=== PATIENT | female | born 1995 | race Caucasian/White ===

== ENCOUNTER 2018-01-07 18:27 | Emergency (ER) | payer BC ==
[2018-01-07 19:05] VITALS: BP 99/56
--- NOTE | 2018-01-07 20:10 | UC ---
Complaint Female HPI - HPI Summary HPI Summary: 22 y/o female presents to the urgent care c/o frequency and burning on urination since this morning. Mild suprapubic pelvic pain is 3/10 w/ urination. Pt has taking Ibuprofen to alleviate symptoms. She had Hx of UTI in the past. LMP: long time she is on Bry. Pt denies vaginal d/c, fever, flank pain, abdominal pain, SOB,chest pain, N/V/D, Hx of STD's, hematuria - History Of Current Complaint Chief Complaint: UCGU Stated Complaint: URINARY Time Seen by Provider: 01/07/18 19:45 Hx Obtained From: Patient Hx Last Menstrual Period: BRY IMPLANT ?: No Onset/Duration: Gradual Onset, Lasting Days - 1 day, Still Present Timing: Intermittent, Lasting Seconds Severity Initially: Mild Severity Currently: Mild Pain Intensity: 3 Pain Scale Used: 0-10 Numeric Character: Burning Aggravating Factor(s): Urination Alleviating Factor(s): Nothing Associated Signs And Symptoms: Positive: Negative. Negative: Fever, Back Pain, Vaginal Bleeding/Discharge, Vaginal Discharge, Genital Swelling, Genital Blisters - Risk Factors Ectopic Risk Factor: Negative Ovarian Torsion Risk Factor: Negative - Allergies/Home Medications Allergies/Adverse Reactions: Allergies Allergy/AdvReac Type Severity Reaction Status Date / Time amoxicillin Allergy Swelling Verified 01/07/18 18:54 clindamycin Allergy Rash Verified 01/07/18 18:54 Penicillins Allergy Swelling Verified 01/07/18 18:54 Sulfa (Sulfonamide Allergy Rash Verified 01/07/18 18:54 Antibiotics) Home Medications: Home Medications Ibuprofen TAB* [Advil TAB*] 400 mg PO Q6H PRN 01/07/18 [History Confirmed ] Lurasidone(*) [Latuda] 20 mg PO DAILY 01/07/18 [History Confirmed 01/07/18] PMH/Surg Hx/FS Hx/Imm Hx Previously Healthy: Yes - Pt denies PMHX - Surgical History Surgical History: Yes Surgery Procedure, Year, and Place: fatty tumor, right eye x 2 - Family History Known Family History: Positive: Unknown - Pt denies FMHX - Social History Occupation: Employed Full-time Lives: With Family Alcohol Use: Weekly Substance Use Type: Marijuana Smoking Status (MU): Current Some Day Smoker Type: Cigarettes Amount Used/How Often: ONCE A MONTH Length of Time of Smoking/Using Tobacco: 2 YRS Have You Smoked in the Last Year: Yes Review of Systems Constitutional: Negative Skin: Negative Eyes: Negative ENT: Negative Respiratory: Negative Cardiovascular: Negative Gastrointestinal: Negative Genitourinary: Dysuria, Frequency, Urgency Motor: Negative Neurovascular: Negative Musculoskeletal: Negative Neurological: Negative Psychological: Negative Is Patient Immunocompromised?: No All Other Systems Reviewed And Are Negative: Yes Physical Exam - Summary Physical Exam Summary: VITAL SIGNS: Reviewed. GENERAL: Patient is a well developed and nourished female who is sitting comfortable in the examining table. Patient is not in any acute respiratory distress. HEAD AND FACE: No signs of trauma. No ecchymosis, hematomas or skull depressions. No sinus tenderness. EYES: PERRLA, EOMI x 2, No injected conjunctiva, clear watery eyes, no nystagmus. No photophobia. EARS: Hearing grossly intact. Ear canals and tympanic membranes are within normal limits. MOUTH: pharynx with no erythema, no exudates,no palatal petechiae. no B/L tonsillar enlargement Uvula in midline. NECK: Supple, trachea is midline, no lymphadenopathy, no JVD, no carotid bruit, no c-spine tenderness, neck with full ROM. CHEST: Symmetric, no tenderness at palpation LUNGS: Clear to auscultation bilaterally. No wheezing or crackles. CVS: Regular rate and rhythm, S1 and S2 present, no murmurs or gallops appreciated. ABDOMEN: Soft, non-tender. No signs of distention. No rebound no guarding, and no masses palpated. Bowel sounds are normal. BACK:no scoliosis or lesions, non tender to palpation, No B/L CVA tenderness EXTREMITIES: FROM in all major joints, no edema, no cyanosis or clubbing. NEURO: Alert and oriented x 3. No acute neurological deficits. Speech is normal and follows commands. SKIN: Dry and warm Triage Information Reviewed: Yes Vital Signs: Initial Vital Signs Temp 98.1 F 01/07/18 18:59 Pulse 83 01/07/18 18:59 Resp 16 01/07/18 18:59 BP 99/56 01/07/18 18:59 Pulse Ox 99 01/07/18 18:59 Complaint Female Dx - Course Course Of Treatment: 22 y/o female presents to the urgent care c/o frequency and burning on urination since this morning. Mild suprapubic pelvic pain is 3/ 10 w/ urination. Pt has taking Ibuprofen to alleviate symptoms. She had Hx of UTI in the past. LMP: long time she is on Bry. Pt denies vaginal d/c, fever, flank pain, abdominal pain, SOB,chest pain, N/V/D, Hx of STD's, hematuria. Hx obtained. PE: WNL.UA and test ordered. UA results: Blood 1+, Leukoesterase 2+. test: negative. Pt Rx Macrobid 100mg PO x 7 days. Pyridium 100mg PO TID x 2 days. Advised to increase fluid intake. Urine sent for culture if any abnormality Pt will be notified for further treatment. Pt advised If symptoms do not improve to return to the urgent care or f/u with PCP. Pt understood and agreed w/ D/C instructions. Pt Left the clinic ambulating. - Differential Dx/Diagnosis Differential Diagnosis/HQI/PQRI: Cervicitis, Pelvic Inflammatory Disease, Renal Colic, Sexually Transmitted Disease, Ureteral Stone, Urinary Tract Infection Provider Diagnoses: 1- Urinary tract infection. 2-Dysuria Discharge - Sign-Out/Discharge Documenting (check all that apply): Discharge/Admit/Transfer - D/C home - Discharge Plan Condition: Stable Disposition: HOME Prescriptions: Nitrofurantoin Monohyd/M-Cryst [Macrobid 100 mg Capsule] 100 mg PO BID #14 cap Phenazopyridine TAB* [Pyridium 100 mg TAB*] 100 mg PO TID #6 tab Patient Education Materials: Urinary Tract Infection in Women (ED), Dysuria (ED ) Referrals: Juventino Hoyt MD [Primary Care Provider] - 3 Days Additional Instructions: 1- Please take Macrobid 100mg PO x 7 days. Pyridium 100 mg PO TID x 2 days to alleviate urinary symptoms. Increase increase fluid intake. drink cranberry juice. 2-Urine sent for culture if any abnormality, you will be notified for further treatment. 3-If symptoms do not improve please return to the urgent care or f/u with your PCP. - Billing Disposition and Condition Condition: STABLE
== END 2018-01-07 20:34 | disposition home or self-care (01) ==
LOC: UCCORT 18:27
DX: N39.0 Urinary tract infection, site not specified (principal); R30.0 Dysuria; Z88.3 Allergy status to other anti-infective agents; Z88.0 Allergy status to penicillin; Z88.2 Allergy status to sulfonamides
CPT/HCPCS: 81003; 84702; 87077; 87086; 87186; 99212; G0463

== ENCOUNTER 2018-02-26 17:34 | Emergency (ER) | payer BC ==
[2018-02-26 18:36] VITALS: BP 103/62
--- NOTE | 2018-02-26 20:01 | ED ---
GI/ HPI - HPI Summary HPI Summary: 22 yo WF h/o UTI c/o recurrent UTI sx of dysuria, urinary frequency and urgency since yesterday - History of Current Complaint Chief Complaint: UCGU Time Seen by Provider: 02/26/18 19:19 Stated Complaint: URINARY Hx Obtained From: Patient Hx Last Menstrual Period: IUD Onset/Duration: Started Hours Ago Timing: Constant Severity: Moderate Current Severity: Moderate Pain Intensity: 4 - Allergy/Home Medications Allergies/Adverse Reactions: Allergies Allergy/AdvReac Type Severity Reaction Status Date / Time amoxicillin Allergy Swelling Verified 01/07/18 18:54 clindamycin Allergy Rash Verified 01/07/18 18:54 Penicillins Allergy Swelling Verified 01/07/18 18:54 Sulfa (Sulfonamide Allergy Rash Verified 01/07/18 18:54 Antibiotics) Home Medications: Home Medications Phenazopyridine HCl [Urinary Pain Relief] 95 mg PO ONCE PRN 02/26/18 [History Confirmed 02/26/18] PMH/Surg Hx/FS Hx/Imm Hx Previously Healthy: Yes - UTIs - Surgical History Surgery Procedure, Year, and Place: fatty tumor, right eye x 2 Infectious Disease History: No Infectious Disease History: Denies: Hx Clostridium Difficile, Hx Hepatitis, Hx Human Immunodeficiency Virus (HIV), Hx of Known/Suspected MRSA, Hx Shingles, Hx Tuberculosis, Hx Known/ Suspected VRE, Hx Known/Suspected VRSA, History Other Infectious Disease, Traveled Outside the in Last 30 Days - Family History Known Family History: Positive: Unknown - Pt denies FMHX - Social History Alcohol Use: None Alcohol Amount: pt states she quit ETOH approx 1 mo ago Substance Use Type: Reports: Marijuana Substance Use Comment - Amount & Last Used: not used for past 4 mos. Smoking Status (MU): Current Some Day Smoker Type: Cigarettes Amount Used/How Often: ONCE A MONTH Length of Time of Smoking/Using Tobacco: 2 YRS Have You Smoked in the Last Year: Yes Review of Systems Constitutional: Negative Eyes: Negative ENT: Negative Cardiovascular: Negative Respiratory: Negative Gastrointestinal: Negative Positive: dysuria, frequency, urgency Musculoskeletal: Negative Skin: Negative Neurological: Negative Psychological: Normal All Other Systems Reviewed And Are Negative: Yes Physical Exam - Summary Physical Exam Summary: Vital Signs Reviewed: Yes Appearance: Positive: Well-Appearing Skin: Neg skin lesions Respiratory/Lung Sounds: Positive: Clear to Auscultation Cardiovascular: Positive: Normal, RRR, S1, S2 Abdomen Description: Positive: Nontender, no CVA tenderness Musculoskeletal: Positive: Normal Neurological: Positive: Normal Psychiatric: Positive: Normal Triage Information Reviewed: Yes Vital Signs On Initial Exam: Initial Vitals Temp Pulse Resp BP Pulse Ox 37.1 C 88 18 103/62 99 02/26/18 18:30 02/26/18 18:30 02/26/18 18:30 02/26/18 18:30 02/26/18 18:30 Vital Signs Reviewed: Yes Diagnostics - Vital Signs Vital Signs Temp Pulse Resp BP Pulse Ox 02/26/18 18:30 37.1 C 88 18 103/62 99 - Laboratory Lab Results: Lab Results 02/26/18 Range/Units 18:47 POC Ur Test Negative (Negative) Lab Statement: Any lab studies that have been ordered have been reviewed, and results considered in the medical decision making process. GIGU Course/Dx - Diagnoses Provider Diagnoses: UTI (urinary tract infection) Discharge - Sign-Out/Discharge Documenting (check all that apply): Discharge/Admit/Transfer - Discharge Plan Condition: Stable Disposition: HOME Prescriptions: Nitrofurantoin Monohyd/M-Cryst [Macrobid 100 mg Capsule] 100 mg PO BID 5 Days # 10 cap Patient Education Materials: Urinary Tract Infection in Women (ED) Referrals: Juventino Hoyt MD [Primary Care Provider] - - Billing Disposition and Condition Condition: STABLE Disposition: Home
== END 2018-02-26 20:10 | disposition home or self-care (01) ==
LOC: UCCORT 17:34
DX: N39.0 Urinary tract infection, site not specified (principal); Z87.440 Personal history of urinary (tract) infections; Z88.1 Allergy status to other antibiotic agents; Z88.0 Allergy status to penicillin; Z88.2 Allergy status to sulfonamides; F17.210 Nicotine dependence, cigarettes, uncomplicated
CPT/HCPCS: 84702; 99212; G0463

== ENCOUNTER 2018-04-30 13:49 | Emergency (ER) | payer BC ==
--- OUTSIDE RECORDS SUMMARY | 2018-04-30 14:04 | XMS REPORT ---
:1995 External Reference #:[id number] Author [facility] Address [address] [place] [id number] Phone [phone] Care Team Providers Name Role Phone Juventino Hoyt MD Primary Care Physician Unavailable Payers Type Date Identification Numbers Payment Provider Subscriber Commercial Effective: Policy Number: [id number] Whitley Mcconnell 2014 PayID: [id number] [address] [address] [place] [address] Medicaid Effective: 2018 Policy Number: Medicaid Pe (JC) Argelia Mcconnell [id number] Expires: 2018 PayID: [id number] [address] [place] [phone] Medicaid Expires: 2016 Policy Number: Medicaid FPBP (JC) Argelia Mcconnell [id number] PayID: [id number] [place] [phone] Medicaid Expires: 2017 PayID: [id number] Medicaid Pe ([facility]) Argelia Mcconnell [address] [place] [phone] Problems Date Description Provider Status Onset: 09/04/2015 Farhat Calvo NP Active Family History Date Family Member(s) Problem(s) Comments General Breast Cancer paternal great grandmother and paternal grandmother Father Alive Mother Alive Social History Type Date Description Comments Education College Education Currently working on nursing Associates Degree Work Status Part-Time Employment [employer] 01/20/2018 Never Smoked Cigars Pipe 01/20/2018 Never Smoked A Pipe Smokeless Tobacco 01/20/2018 Never Used Smokeless Tobacco ETOH Use Currently consumes alcohol Recreational Drug Use No I.D.U. Smoking Patient is a former smoker Recreational Drug Use Teaching Provided Regarding Naloxone/Narcan Training Available At [facility] Recreational Drug Use Sporadically uses Cocaine states used a few months ago, not planning on using again, thinks she shared her bill Tattoo/Piercing Negative For Tattoo Age [address]st [place] 15 Years Old STD's No STD History Sexual Hx text Allergies, Adverse Reactions, Alerts Date Description Reaction Status Severity Comments 08/28/2015 Latex active 08/28/2015 Penicillin active 08/28/2015 Clindamycin active 08/28/2015 Amoxicillin active 08/28/2015 Sulfa Antibiotics active 12/10/2017 Cipro active 12/10/2017 Levaquin active Medications Medication Date Status Form Strength Qnty SIG Indications Ordering Provider Nuvaring 04/19 Active Ring 0.12-0.01 3unit insert 1 ring Z30.015 In 5mg/24HR s vaginally on MD Get the then remove on the of the month; each month Nuvaring 04/19 Active Ring 0.12-0.01 3unit insert 1 ring Z30.015 In 5mg/24HR s vaginally on MD Get the then remove on the of the ; each month Jessica 10/16 Administered IUD 13.5mg Z30.014 Melinda SANDEEP Calvo Latuda Active Unknown /0000 Terconazole 09/11 Hx Cream 0.4% 45gm one B37.3 Melinda applicatorful [place], - vaginally x 7 [employer] 12/10 days at at 2018 bedtime Nuvaring 09/04 Hx Ring 0.12-0.01 3unit Insert Z30.40 Melinda 5mg/24HR s vaginally [place], - monthly Remove [employer] 10/16 in 3 weeks directed Depakote Hx Unknown /0000 - 09/11 Vital Signs Date Vital Result Comment 04/26/2018 BP Systolic 114 mmHg BP Diastolic 73 mmHg Height 64.5 inches 5'4.50" Weight 179.00 lb BMI (Body Mass Index) 30.2 kg/m2 04/19/2018 BP Systolic 111 mmHg BP Diastolic 75 mmHg Height 64.5 inches 5'4.50" Weight 181.00 lb BMI (Body Mass Index) 30.6 kg/m2 01/20/2018 BP Systolic 106 mmHg BP Diastolic 64 mmHg Height 64.5 inches 5'4.50" Weight 183.00 lb BMI (Body Mass Index) 30.9 kg/m2 12/10/2017 BP Systolic 118 mmHg BP Diastolic 78 mmHg Height 64.5 inches 5'4.50" Weight 182.00 lb BMI (Body Mass Index) 30.8 kg/m2 09/11/2017 BP Systolic 108 mmHg BP Diastolic 65 mmHg Height 64.5 inches 5'4.50" Weight 180.00 lb BMI (Body Mass Index) 30.4 kg/m2 11/10/2016 BP Systolic 110 mmHg BP Diastolic 72 mmHg Height 64.5 inches 5'4.50" Weight 152.00 lb BMI (Body Mass Index) 25.7 kg/m2 10/16/2016 BP Systolic 105 mmHg BP Diastolic 80 mmHg BP Systolic Recheck 113 mmHg post IUD insertion BP Diastolic Recheck 73 mmHg post IUD insertion Height 64.5 inches 5'4.50" 09/04/2015 BP Systolic 90 mmHg BP Diastolic 60 mmHg Height 64.5 inches 5'4.50" Weight 152.00 lb BMI (Body Mass Index) 25.7 kg/m2 Last Menstrual Period [id number] Results Test Date Test Result H/L Range Note Chlamydia/N Gonorroeae 04/19/2018 CT,Rna,Tma,Uroge NOT DETECTED Not Detected 1 Rna Tma Urogenit nital GC Rna,Tma,Urogen NOT DETECTED Not Detected 2 Laboratory test finding 04/19/2018 HIV Rapid... non reactive Chlamydia/N Gonorroeae 01/20/2018 CT,Rna,Tma,Urogenita NOT DETECTED Not Detected 3 Rna Tma Urogenit l GC Rna,Tma,Urogen NOT DETECTED Not Detected 4 Laboratory test 01/20/2018 RPR W/Titer and Conf NON-REACTIVE Non- Reactive 5 finding RFX Laboratory test 01/20/2018 Test negative finding Urine..... Laboratory test 12/10/2017 HIV Rapid... non reactive finding Hep C Rapid Test non reactive Wet Prep.... 12/10/2017 WBC Smear few Clue Cells Vag Fluid Wet Prep 0 Reva Wet Prep 0 Lactobacillus Wet Prep many Whiff Wet Prep neg. Bacteria Wet Prep n/a PH Wet Prep 4.5 Misc Other Test no trich seen Chlam Trach/Neisseria 12/10/2017 C.Trachomatis NOT DETECTED Not Detected 6 Gonorroeae Rna Tma Rna,Tma N.Gonorrhoeae Rna,Tma NOT DETECTED Not Detected 7 Laboratory test finding 09/11/2017 HIV Rapid... non reactive Hep C Rapid Test non reactive HGB Blood.... 12.8 Thinprep Pap Boil Off Machine Operator Cloth W/RFX HPV HR 09/11/2017 Results SEE NOTE 8 Wet Prep.... 09/11/2017 WBC Smear few Clue Cells Vag Fluid Wet Prep 0 Reva Wet Prep hyphaen and buds Lactobacillus Wet Prep many Whiff Wet Prep neg. Bacteria Wet Prep n/a PH Wet Prep 4.5 Misc Other Test no trich seen Chlam Trach/Neisseria 09/11/2017 C.Trachomatis NOT DETECTED Not Detected 9 Gonorroeae Rna Tma Rna,Tma N.Gonorrhoeae Rna,Tma NOT DETECTED Not Detected 10 Chlam Trach/Neisseria 11/10/2016 C.Trachomatis NOT DETECTED Not Detected 11 Gonorroeae Rna Tma Rna,Tma N.Gonorrhoeae Rna,Tma NOT DETECTED Not Detected 12 Culture,Urine,Voided 11/10/2016 Source URINE Final Report SEE NOTE 13 Urinalysis DIP Only.... 11/10/2016 Urine Leukocyte Esterase QN N Urine Nitrite QN N Urine Blood ++ Urine PH 8.0 Urine Protein Random ++ Urine Ketone Random N Urine Glucose QN Random N Laboratory test finding 11/10/2016 Test Urine..... neg Wet Prep.... 11/10/2016 WBC Smear neg Clue Cells Vag Fluid Wet Prep neg Reva Wet Prep neg Lactobacillus Wet Prep neg Whiff Wet Prep neg Bacteria Wet Prep na PH Wet Prep 4.5 Misc Other Test No trich Chlam Trach/Neisseria 10/16/2016 C.Trachomatis NOT DETECTED Not Detected 14 Gonorroeae Rna Tma Rna,Tma N.Gonorrhoeae Rna,Tma NOT DETECTED Not Detected 15 Laboratory test finding 10/16/2016 HIV Rapid... non reactive Laboratory test finding 10/16/2016 Test Urine..... neg Urinalysis DIP Only.... 10/16/2016 Urine Leukocyte Esterase QN N Urine Nitrite QN N Urine Blood N Urine PH 8.0 Urine Protein Random tr Urine Ketone Random N Urine Glucose QN Random N Wet Prep.... 09/04/2015 WBC Smear 0-1 Clue Cells Vag Fluid Wet Prep none Reva Wet Prep none Lactobacillus Wet Prep few Whiff Wet Prep negative Bacteria Wet Prep none PH Wet Prep 4.5 Misc Other Test no trich seen Thinprep Pap Boil Off Machine Operator Cloth 09/04/2015 Results SEE NOTE 16 W/RFX HPV Mrna E6/E7 Laboratory test 09/04/2015 C.Trachomatis NOT DETECTED Not Detected 17 finding Rna,Tma W/RFX N.Gonorrhoeae Rna,Tma [place] Annual Lab Set 09/04/2015 HGB Blood.... 12.5 Urinalysis DIP 09/04/2015 Urine Leukocyte tr Only.... Esterase QN Urine Nitrite QN N Urine Blood N Urine PH 9 Urine Protein Random ++ Urine Ketone Random N Urine Glucose QN Random N Laboratory test finding 09/04/2015 HIV Rapid... non reactive 1 This test was performed using the APTIMA COMBO2(R) Assay (GEN-PROBE(R). The analytical performance characteristics of this assay, when used to test SurePath(R) specimens have been determined by [facility]. 2 This test was performed using the APTIMA COMBO2(R) Assay (GEN-PROBE(R). The analytical performance characteristics of this assay, when used to test SurePath(R) specimens have been determined by [facility]. 3 This test was performed using the APTIMA COMBO2(R) Assay (GEN-PROBE(R). The analytical performance characteristics of this assay, when used to test SurePath(R) specimens have been determined by [facility]. 4 This test was performed using the APTIMA COMBO2(R) Assay (GEN-PROBE(R). The analytical performance characteristics of this assay, when used to test SurePath(R) specimens have been determined by [facility]. 5 The RPR is a htl-yxeiwpkokb-wufacwkv test; therefore a treponemal-specific confirmatory test should be performed unless prior syphilis infection has been documented for the patient. 6 This test was performed using the APTIMA COMBO2(R) Assay (GEN-PROBE(R). The analytical performance characteristics of this assay, when used to test SurePath(R) specimens have been determined by [facility]. 7 This test was performed using the APTIMA COMBO2(R) Assay (GEN-PROBE(R). The analytical performance characteristics of this assay, when used to test SurePath(R) specimens have been determined by [facility]. 8 GYNECOLOGICAL CYTOLOGY REPORT Thinprep TIS PAP w/rfx to HPV E6/E7 REPORT STATUS: FINAL CLINICAL INFORMATION: Information not provided SLIDES / SOURCE: 1 / Information not provided STATEMENT OF ADEQUACY: Satisfactory for evaluation. Endocervical/transformation zone component present. INTERPRETATION/RESULT: Negative for intraepithelial lesion or malignancy. COMMENT: This Pap test has been evaluated with computer assisted technology. HOTEL DIRECTOR: MELISSA KIDD([facility]) For informational Purposes: All cytology specimens are processed and screened at [facility]. [address] [place] [id number] This test was performed using the APTIMA COMBO2(R) Assay (GEN-PROBE(R). The analytical performance characteristics of this assay, when used to test SurePath(R) specimens have been determined by [facility]. 10 This test was performed using the APTIMA COMBO2(R) Assay (GEN-PROBE(R). The analytical performance characteristics of this assay, when used to test SurePath(R) specimens have been determined by [facility]. 11 This test was performed using the APTIMA COMBO2(R) Assay (GEN-PROBE(R). The analytical performance characteristics of this assay, when used to test SurePath(R) specimens have been determined by [facility]. 12 This test was performed using the APTIMA COMBO2(R) Assay (GEN-PROBE(R). The analytical performance characteristics of this assay, when used to test SurePath(R) specimens have been determined by [facility]. 13 NO GROWTH 14 This test was performed using the APTIMA COMBO2(R) Assay (GEN-PROBE(R). The analytical performance characteristics of this assay, when used to test SurePath(R) specimens have been determined by [facility]. 15 A NON-SPECIFIC TEST WAS ORDERED AND THE ABOVE ASSAY WAS PERFORMED. IF THIS IS NOT WHAT YOU INTENDED TO ORDER, PLEASE CONTACT YOUR LOCAL NAILHEAD OPERATOR IMMEDIATELY AT SO THAT WE CAN ADJUST OUR BILLING APPROPRIATELY. YOU MAY ALSO INQUIRE ABOUT ALTERNATIVE OR ADDITIONAL TESTING. This test was performed using the APTIMA COMBO2(R) Assay (GEN-PROBE(R). The analytical performance characteristics of this assay, when used to test SurePath(R) specimens have been determined by [facility]. 16 GYNECOLOGICAL CYTOLOGY REPORT Thinprep TIS PAP w/rfx to HPV E6/E7 REPORT STATUS: FINAL CLINICAL INFORMATION: Routine exam LMP: [id number] SLIDES / SOURCE: 1 / Information not provided STATEMENT OF ADEQUACY: Satisfactory for evaluation. Endocervical/transformation zone component present. INTERPRETATION/RESULT: Negative for intraepithelial lesion or malignancy. COMMENT: This Pap test has been evaluated with computer assisted technology. HOTEL DIRECTOR: ERINN HERNANDEZ([facility]) For informational Purposes: All cytology specimens are processed and screened at [facility]. [address] [place] [id number] This test was performed using the APTIMA COMBO2(R) Assay (GEN-PROBE(R). The analytical performance characteristics of this assay, when used to test SurePath(R) specimens have been determined by [facility]. Procedures Date CPT Code Description Status 10/16/2016 [id number] Insert Intrauterine Device Completed Encounters Type Date Location Provider CPT E/M Office Visit 12/10/2017 2:30p [place] [id number] Office Visit 10/16/2016 3:15p [place] [id number]
[2018-04-30 14:43] VITALS: BP 104/62
--- NOTE | 2018-04-30 14:55 | UC ---
Complaint Female HPI - HPI Summary HPI Summary: pt is c/o external vaginal itching and burning after sex with a new partner 4 days ago. she self tx with single monistat followed by a single diflucan from [facility] 2 days ago. she was tx based on hx and didn't have a pelvic but offeres didn't have time for that either. - History Of Current Complaint Chief Complaint: UCGU Stated Complaint: PERSONAL Time Seen by Provider: 04/30/18 14:48 Hx Obtained From: Patient Hx Last Menstrual Period: 2.5 weeks Onset/Duration: Gradual Onset Timing: Constant Pain Intensity: 2 Aggravating Factor(s): Nothing Alleviating Factor(s): Nothing Associated Signs And Symptoms: Negative: Fever, Back Pain, Vaginal Bleeding/ Discharge - Allergies/Home Medications Allergies/Adverse Reactions: Allergies Allergy/AdvReac Type Severity Reaction Status Date / Time amoxicillin Allergy Swelling Verified 01/07/18 18:54 clindamycin Allergy Rash Verified 01/07/18 18:54 Penicillins Allergy Swelling Verified 01/07/18 18:54 Sulfa (Sulfonamide Allergy Rash Verified 01/07/18 18:54 Antibiotics) fluoroquinolones Allergy anxiety Uncoded 04/30/18 14:44 depression Home Medications: Home Medications Nuvaring 1 unit VAGINAL DAILY 04/30/18 [History Confirmed 04/30/18] PMH/Surg Hx/FS Hx/Imm Hx Psychological History: Bipolar Disorder - Surgical History Surgical History: Yes Surgery Procedure, Year, and Place: fatty tumor, right eye x 2 - Family History Known Family History: Positive: Unknown - Pt denies FMHX - Social History Occupation: Employed Full-time, Student Alcohol Use: Occasionally Alcohol Amount: pt states she quit ETOH approx 1 mo ago Substance Use Type: Marijuana Substance Use Comment - Amount & Last Used: end March 2018 Smoking Status (MU): Never Smoked Tobacco Type: Cigarettes Amount Used/How Often: ONCE A MONTH Length of Time of Smoking/Using Tobacco: 2 YRS Have You Smoked in the Last Year: Yes When Did the Patient Quit Smoking/Using Tobacco: December, - Immunization History Vaccination Up to Date: Yes Review of Systems Constitutional: Negative Skin: Negative Eyes: Negative ENT: Negative Respiratory: Negative Cardiovascular: Negative Gastrointestinal: Negative Genitourinary: Negative Motor: Negative Neurovascular: Negative Musculoskeletal: Negative Neurological: Negative Psychological: Negative Is Patient Immunocompromised?: No All Other Systems Reviewed And Are Negative: Yes Physical Exam Triage Information Reviewed: Yes Appearance: Well-Appearing Vital Signs: Initial Vital Signs Temp 98.2 F 04/30/18 14:29 Pulse 98 04/30/18 14:29 Resp 16 04/30/18 14:29 BP 104/62 04/30/18 14:29 Pulse Ox 99 04/30/18 14:29 Vital Signs Reviewed: Yes Eyes: Positive: Conjunctiva Clear ENT: Positive: Normal ENT inspection Neck: Positive: Supple, Nontender, No Lymphadenopathy Respiratory: Positive: Lungs clear, Normal breath sounds Cardiovascular: Positive: RRR, No Murmur Abdomen Description: Positive: Nontender, No Organomegaly, Soft. Negative: Distended, Guarding Bowel Sounds: Positive: Present Pelvic Exam: Positive: Other - External exam: no lesions, ulcerations, vesicles or odor. vaginal opeing is red. Vagina has a thick white material. Os closed. cultures obtained. No CMT or adnexal mass on Bimanual exam. Musculoskeletal: Positive: ROM Intact Neurological: Positive: Alert Psychological: Positive: Age Appropriate Behavior Skin Exam: Normal Complaint Female Dx - Course Course Of Treatment: nothing to suggest herpes or std on exam. affirm plus gc and chlamydia testes pending. will tx presumptively for yeast vaginitis. - Differential Dx/Diagnosis Provider Diagnoses: vaginitis Discharge - Sign-Out/Discharge Documenting (check all that apply): Patient Departure All imaging exams completed and their final reports reviewed: No Studies - Discharge Plan Condition: Stable Disposition: HOME Prescriptions: Fluconazole [Diflucan] 150 mg PO ONCE #1 tablet Patient Education Materials: Vaginitis (ED) Referrals: Juventino Hoyt MD [Primary Care Provider] - 7 Days - Billing Disposition and Condition Condition: STABLE Disposition: Home
--- NOTE | 2018-05-02 08:44 | UC ---
- Progress Note Progress Note: Vaginal culture test positive for gardnerella and negative for gary. Trichomonas pending . She was already given fluconazole. Plan to start her on flagyl , e precribed. Please inform patient Discharge - Sign-Out/Discharge Documenting (check all that apply): Post-Discharge Follow Up All imaging exams completed and their final reports reviewed: No Studies - Discharge Plan Condition: Stable Disposition: HOME Prescriptions: Fluconazole [Diflucan] 150 mg PO ONCE #1 tablet Patient Education Materials: Vaginitis (ED) Referrals: Juventino Hoyt MD [Primary Care Provider] - 7 Days - Billing Disposition and Condition Condition: STABLE Disposition: Home
== END 2018-04-30 15:55 | disposition home or self-care (01) ==
LOC: UCCORT 13:49
DX: N76.0 Acute vaginitis (principal); Z87.891 Personal history of nicotine dependence; Z88.3 Allergy status to other anti-infective agents; Z88.0 Allergy status to penicillin; Z88.2 Allergy status to sulfonamides
CPT/HCPCS: 87480; 87491; 87510; 87591; 87661; 99212; G0463

== ENCOUNTER 2018-08-30 15:20 | Emergency (ER) | payer BC ==
[2018-08-30 16:36] VITALS: BP 107/68
--- NOTE | 2018-08-30 16:58 | UC ---
Throat Pain/Nasal Chandra HPI - HPI Summary HPI Summary: Patient has a sore throat, left tonsil is swollen and sore, no fever - History of Current Complaint Chief Complaint: UCGeneralIllness Stated Complaint: SORE THROAT Time Seen by Provider: 08/30/18 16:50 Hx Obtained From: Patient Hx Last Menstrual Period: 08/23/18 ?: No Onset/Duration: Sudden Onset, Lasting Days Severity: Moderate Pain Intensity: 3 Associated Signs & Symptoms: Positive: Dysphagia - Allergies/Home Medications Allergies/Adverse Reactions: Allergies Allergy/AdvReac Type Severity Reaction Status Date / Time amoxicillin Allergy Swelling Verified 08/30/18 16:30 clindamycin Allergy Rash Verified 08/30/18 16:30 Penicillins Allergy Swelling Verified 08/30/18 16:30 Sulfa (Sulfonamide Allergy Rash Verified 08/30/18 16:30 Antibiotics) fluoroquinolones Allergy anxiety Uncoded 08/30/18 16:30 depression PMH/Surg Hx/FS Hx/Imm Hx Previously Healthy: Yes - Surgical History Surgical History: Yes Surgery Procedure, Year, and Place: fatty tumor, right eye x 2 - Family History Known Family History: Positive: Unknown Negative: Cardiac Disease, Hypertension - Social History Alcohol Use: Occasionally Alcohol Amount: pt states she quit ETOH approx 1 mo ago Substance Use Type: None Substance Use Comment - Amount & Last Used: end March 2018 Smoking Status (MU): Never Smoked Tobacco Type: Cigarettes Amount Used/How Often: ONCE A MONTH Length of Time of Smoking/Using Tobacco: 2 YRS Have You Smoked in the Last Year: Yes When Did the Patient Quit Smoking/Using Tobacco: December, - Immunization History Vaccination Up to Date: Yes Review of Systems All Other Systems Reviewed And Are Negative: Yes Constitutional: Positive: Negative Skin: Positive: Negative Eyes: Positive: Negative ENT: Positive: Sore Throat Respiratory: Positive: Negative Cardiovascular: Positive: Negative Gastrointestinal: Positive: Negative Genitourinary: Positive: Negative Motor: Positive: Negative Neurovascular: Positive: Negative Musculoskeletal: Positive: Negative Neurological: Positive: Negative Psychological: Positive: Negative Is Patient Immunocompromised?: No Physical Exam Triage Information Reviewed: Yes Appearance: Well-Nourished, Ill-Appearing, Pain Distress Vital Signs: Initial Vital Signs Temp 98.3 F 08/30/18 16:31 Pulse 102 08/30/18 16:31 Resp 16 08/30/18 16:31 BP 107/68 12/24/18 16:31 Pulse Ox 100 08/30/18 16:31 Vital Signs Reviewed: Yes Eye Exam: Normal ENT Exam: Normal ENT: Positive: Pharyngeal erythema, Tonsillar swelling, Tonsillar exudate - in left tonsil Dental Exam: Normal Neck exam: Normal Respiratory Exam: Normal Cardiovascular Exam: Normal Cardiovascular: Positive: RRR, No Murmur, Pulses Normal Abdominal Exam: Normal Bowel Sounds: Positive: Present Musculoskeletal Exam: Normal Neurological Exam: Normal Psychological Exam: Normal Skin Exam: Normal Throat Pain/Nasal Course/Dx - Course Course Of Treatment: hx obtained, exam performed ,meds reviewed, treated for tonsillitis - Differential Dx/Diagnosis Differential Diagnosis/HQI/PQRI: Otitis Media, Pharyngitis, Sinusitis, URI Provider Diagnosis: Tonsillitis Discharge - Sign-Out/Discharge Documenting (check all that apply): Patient Departure All imaging exams completed and their final reports reviewed: No Studies - Discharge Plan Condition: Stable Disposition: HOME Prescriptions: Cephalexin CAP* [Keflex CAP*] 500 mg PO BID #14 cap predniSONE [Prednisone 20 MG TAB] 40 mg PO DAILY #10 tablet Patient Education Materials: Tonsillitis (ED) Referrals: Juventino Hoyt MD [Primary Care Provider] - Additional Instructions: 1. take the medication as prescribed 2. Increase fluid intake and get rested 3. salt water garlges frequently throughout the day 4. FOllow up as needed. - Billing Disposition and Condition Condition: STABLE Disposition: Home
== END 2018-08-30 17:07 | disposition home or self-care (01) ==
LOC: UCCORT 15:20
DX: J03.90 Acute tonsillitis, unspecified (principal); Z88.0 Allergy status to penicillin; Z88.1 Allergy status to other antibiotic agents; Z88.2 Allergy status to sulfonamides
CPT/HCPCS: 87651; 99212; G0463

== ENCOUNTER 2018-10-16 07:18 | Emergency (ER) | payer BC ==
--- OUTSIDE RECORDS SUMMARY | 2018-10-16 07:29 | XMS REPORT | Continuity of Care Document ---
:1995 External Reference #:[id number] Author Name Melinda Calvo NP Address [address] [place] [id number] Care Team Providers Name Role Phone Juventino Hoyt MD Primary Care Physician Unavailable Payers Type Date Identification Numbers Payment Provider Subscriber Effective: 2018 Policy Number: [id number] Whitley Mcconnell PayID: [id number] [address] [address] [place] [id number] Effective: 2018 Policy Number: [id number] Medicaid Pe ([facility]) Argelia Mcconnell Expires: 2018 PayID: [id number] [place] [id number] Expires: 2016 Policy Number: [id number] Medicaid FPBP ([facility]) Argelia Mcconnell PayID: [id number] [address] [place] [id number] Expires: 2017 PayID: [id number] Medicaid Pe ([facility]) Argelia Mcconnell [address] [place] [phone] Effective: 2014 Policy Number: [id number] Whitley Mcconnell Expires: 2018 PayID: [id number] [address] [address] [place] [address] Advance Directives Description No Information Available Problems Date Description Provider Status Onset: 09/04/2015 Acne Melinda Calvo NP Active Family History Date Family Member(s) Problem(s) Comments General Breast Cancer paternal great grandmother and paternal grandmother Father Alive Mother Alive Social History Type Date Description Comments Sex Female Education College Education Currently working on nursing Associates Degree Work Status Part-Time Employment [employer] Tobacco Use Reviewed: 01/20/18 Never Smoked Cigars Tobacco Use Reviewed: 01/20/18 Never Smoked A Pipe Tobacco Use Reviewed: 01/20/18 Never Used Smokeless Tobacco ETOH Use Currently consumes alcohol Recreational Drug Use No I.D.U. Tobacco Use Start: Unknown End: Patient is a former only would take puff Unknown smoker from a cigarette Recreational Drug Use Teaching Provided Regarding Naloxone/Narcan Training Available At [facility] Recreational Drug Use Sporadically uses states used a few Cocaine months ago, not planning on using again, thinks she shared her bill, November 2017 Smoking Status Reviewed: 09/09/18 Patient is a former only would take puff smoker from a cigarette Tattoo/Piercing Negative For Tattoo Age [address]st [place] 15 Years Old STD's No STD History UNKNOWN 01/20/2018 Never E-Cigarette User Allergies, Adverse Reactions, Alerts Date Description Reaction Status Severity Comments 08/28/2015 Latex Active 08/28/2015 Penicillin Active 08/28/2015 Clindamycin Active 08/28/2015 Amoxicillin Active 08/28/2015 Sulfa Antibiotics Active 12/10/2017 Cipro Active 12/10/2017 Levaquin Active Medications Medication Date Status Form Strength Qnty SIG Indications Ordering Provider Plan B 09/30 Administered Tablets 1.5mg 1tabs take one tab Z30.012 Melinda Christianson - today SANDEEP Calvo Nuvaring 09/09 Active Ring 0.12-0.01 1unit insert Z30.44 5mg/24HR s vaginally edmund Calvo NP remove in 3 weeks as directed. Then place new ring one week later. 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 bedtime Nuvaring 09/04 Hx Ring 0.12-0.01 3unit Insert Z30.40 5mg/24HR s vaginally [place] - monthly TELEPHONE WORKER 10/16 Remove in weeks As directed Depakote Hx Unknown /0000 - 09/11 Immunizations Description No Information Available Vital Signs Date Vital Result Comment 09/30/2018 12:18pm BP Systolic 111 mmHg BP Diastolic 76 mmHg 09/24/2018 1:53pm BP Systolic 117 mmHg BP Diastolic 71 mmHg Weight 180.00 lb 09/09/2018 12:58pm BP Systolic 101 mmHg BP Diastolic 66 mmHg Height 64.5 inches 5'4.50" Weight 186.00 lb BMI (Body Mass Index) 31.4 kg/m2 04/26/2018 1:07pm BP Systolic 114 mmHg BP Diastolic 73 mmHg Height 64.5 inches 5'4.50" Weight 179.00 lb BMI (Body Mass Index) 30.2 kg/m2 04/19/2018 11:37am BP Systolic 111 mmHg BP Diastolic 75 mmHg Height 64.5 inches 5'4.50" Weight 181.00 lb BMI (Body Mass Index) 30.6 kg/m2 01/20/2018 11:11am BP Systolic 106 mmHg BP Diastolic 64 mmHg Height 64.5 inches 5'4.50" Weight 183.00 lb BMI (Body Mass Index) 30.9 kg/m2 12/10/2017 2:42pm BP Systolic 118 mmHg BP Diastolic 78 mmHg Height 64.5 inches 5'4.50" Weight 182.00 lb BMI (Body Mass Index) 30.8 kg/m2 09/11/2017 1:40pm BP Systolic 108 mmHg BP Diastolic 65 mmHg Height 64.5 inches 5'4.50" Weight 180.00 lb BMI (Body Mass Index) 30.4 kg/m2 11/10/2016 1:07pm BP Systolic 110 mmHg BP Diastolic 72 mmHg Height 64.5 inches 5'4.50" Weight 152.00 lb BMI (Body Mass Index) 25.7 kg/m2 10/16/2016 3:31pm BP Systolic 105 mmHg BP Diastolic 80 mmHg BP Systolic Recheck 113 mmHg post IUD insertion BP Diastolic Recheck 73 mmHg post IUD insertion Height 64.5 inches 5'4.50" 09/04/2015 1:56pm BP Systolic 90 mmHg BP Diastolic 60 mmHg Height 64.5 inches 5'4.50" Weight 152.00 lb BMI (Body Mass Index) 25.7 kg/m2 Last Menstrual Period [id number] Results Test Date Facility Test Result H/L Range Note Wet Prep.... 09/30/2018 [facility] WBC Smear 0 Clue Cells Vag Fluid Wet Prep 0 Reva Wet Prep hyphae Lactobacillus Wet Prep few Whiff Wet Prep neg. Bacteria Wet Prep n/a PH Wet Prep 4.5 Misc Other Test no trich seen Chlamydia/N 09/24/[address] [facility] [address],Rna,Tma,Urogenital NOT DETECTED Not Detected 1 [place] Rna Tma Urogenit GC Rna,Tma,Urogen NOT DETECTED Not Detected 2 Chlamydia/N 09/24/[address] [facility] [address],Rna,Tma,Urogenital NOT DETECTED Not Detected 3 Gonorroe[place] Rna Tma Urogenit GC Rna,Tma,Urogen NOT DETECTED Not Detected 4 Herpes Simplex Virus 09/24/2018 [facility] NOT GIVEN-NOT GI <SEE NOTE> 5 Culture W/RFX Type HSV Culture NOT ISOLATED Not Isolated 6 Chlamydia/N 09/09/[address] [facility] [address],Rna,Tma,Urogenital NOT DETECTED Not Detected 7 [place]or[place] Rna Tma Urogenit GC Rna,Tma,Urogen NOT DETECTED Not Detected 8 Laboratory test finding 09/09/2018 [facility] Test Urine..... negative Laboratory test finding 09/09/2018 [facility] HIV Rapid... non reactive Hep C Rapid Test non reactive Chlamydia/N 04/19/[address] [facility] [address],Rna,Tma,Urogenital NOT DETECTED Not Detected 9 [place] Rna Tma Urogenit GC Rna,Tma,Urogen NOT DETECTED Not Detected 10 Laboratory test 04/19/2018 [facility] HIV Rapid... non reactive finding Laboratory test 01/20/2018 [facility] RPR W/Titer and NON-REACTIVE Non- Reactive 11 finding Conf RFX Laboratory test 01/20/2018 [facility] Test negative finding Urine..... Chlamydia/N 01/20/[address] [facility] [address],Rna,Tma,Urogen NOT DETECTED Not Detected 12 [place] Rna Tma ital Urogenit GC Rna,Tma,Urogen NOT DETECTED Not Detected 13 Wet Prep.... 12/10/2017 [facility] WBC Smear few Clue Cells Vag Fluid Wet Prep 0 Reva Wet Prep 0 Lactobacillus Wet Prep many Whiff Wet Prep neg. Bacteria Wet Prep n/a PH Wet Prep 4.5 Misc Other Test no trich seen Chlam 12/10/2017 [facility] C.Trachomatis NOT DETECTED Not Detected 14 Trach/Neisseria Rna,Tma Gonorroeae Rna Tma N.Gonorrhoeae Rna,Tma NOT DETECTED Not Detected 15 Laboratory test finding 12/10/2017 [facility] HIV Rapid... non reactive Hep C Rapid Test non reactive Laboratory test finding 09/11/2017 [facility] HIV Rapid... non reactive Hep C Rapid Test non reactive HGB Blood.... 12.8 Thinprep Pap Lmft 09/11/2017 [facility] Results SEE NOTE 16 W/RFX HPV HR Chlam 09/11/2017 [facility] C.Trachomatis NOT DETECTED Not Detected 17 Trach/Neisseria Rna,Tma Gonorroeae Rna Tma N.Gonorrhoeae Rna,Tma NOT DETECTED Not Detected 18 Wet Prep.... 09/11/2017 [facility] WBC Smear few Clue Cells Vag Fluid Wet Prep 0 Reva Wet Prep hyphaen and buds Lactobacillus Wet Prep many Whiff Wet Prep neg. Bacteria Wet Prep n/a PH Wet Prep 4.5 Misc Other Test no trich seen Culture,Urine,Voided 11/10/2016 [facility] URINE Final Report SEE NOTE 19 Urinalysis DIP Only.... 11/10/2016 [facility] Urine Leukocyte Esterase QN N Urine Nitrite QN N Urine Blood ++ Urine PH 8.0 Urine Protein Random ++ Urine Ketone Random N Urine Glucose QN Random N Laboratory test finding 11/10/2016 [facility] Test Urine..... neg Wet Prep.... 11/10/2016 [facility] WBC Smear neg Clue Cells Vag Fluid Wet Prep neg Reva Wet Prep neg Lactobacillus Wet Prep neg Whiff Wet Prep neg Bacteria Wet Prep na PH Wet Prep 4.5 Misc Other Test No trich Chlam 11/10/2016 [facility] C.Trachomatis NOT DETECTED Not Detected 20 Trach/Neisseria Rna,Tma Gonorroeae Rna Tma N.Gonorrhoeae Rna,Tma NOT DETECTED Not Detected 21 Chlam 10/16/2016 [facility] C.Trachomatis NOT DETECTED Not Detected 22 Trach/Neisseria Rna,Tma Gonorroeae Rna Tma N.Gonorrhoeae Rna,Tma NOT DETECTED Not Detected 23 Laboratory test finding 10/16/2016 [facility] HIV Rapid... non reactive Laboratory test finding 10/16/2016 [facility] Test Urine..... neg Urinalysis DIP Only.... 10/16/2016 [facility] Urine Leukocyte Esterase N QN Urine Nitrite QN N Urine Blood N Urine PH 8.0 Urine Protein Random tr Urine Ketone Random N Urine Glucose QN Random N Wet Prep.... 09/04/2015 [facility] WBC Smear 0-1 Clue Cells Vag Fluid Wet Prep none Reva Wet Prep none Lactobacillus Wet Prep few Whiff Wet Prep negative Bacteria Wet Prep none PH Wet Prep 4.5 Misc Other Test no trich seen Thinprep Pap Lmft 09/04/2015 [facility] Results SEE NOTE 24 W/RFX HPV Mrna E6/E7 Laboratory test 09/04/2015 [facility] C.Trachomatis NOT DETECTED Not Detected 25 finding Rna,Tma W/RFX N.Gonorrhoeae Rna,Tma [place] [facility] 09/04/2015 [facility] HGB Blood.... 12.5 Set Urinalysis DIP 09/04/2015 [facility] Urine Leukocyte tr Only.... Esterase QN Urine Nitrite QN N Urine Blood N Urine PH 9 Urine Protein Random ++ Urine Ketone Random N Urine Glucose QN Random N Laboratory test finding 09/04/2015 [facility] HIV Rapid... non reactive 1 This test was performed using the APTIMA COMBO2(R) Assay (GEN-PROBE(R). The analytical performance characteristics of this assay, when used to test SurePath(R) specimens have been determined by [facility]. 2 This test was performed using the APTIMA COMBO2(R) Assay (GEN-PROBE(R). The analytical performance characteristics of this assay, when used to test SurePath(R) specimens have been determined by [facility]. 3 This test was performed using the APTIMA COMBO2(R) Assay (GEN-PROBE(R). The analytical performance characteristics of this assay, when used to test SurePath(R) specimens have been determined by [facility]. 4 This test was performed using the APTIMA COMBO2(R) Assay (GEN-PROBE(R). The analytical performance characteristics of this assay, when used to test SurePath(R) specimens have been determined by [facility]. 5 NOT GIVEN-NOT GIVEN 6 *FAX SENT REQUESTED TO [phone] 7 This test was performed using the APTIMA COMBO2(R) Assay (GEN-PROBE(R). The analytical performance characteristics of this assay, when used to test SurePath(R) specimens have been determined by [facility]. 8 This test was performed using the APTIMA COMBO2(R) Assay (GEN-PROBE(R). The analytical performance characteristics of this assay, when used to test SurePath(R) specimens have been determined by [facility]. 9 This test was performed using the APTIMA COMBO2(R) Assay (GEN-PROBE(R). The analytical performance characteristics of this assay, when used to test SurePath(R) specimens have been determined by [facility]. 10 This test was performed using the APTIMA COMBO2(R) Assay (GEN-PROBE(R). The analytical performance characteristics of this assay, when used to test SurePath(R) specimens have been determined by [facility]. 11 The RPR is a ubd-sfcawvhsyr-ahicjgnw test; therefore a treponemal-specific confirmatory test should be performed unless prior syphilis infection has been documented for the patient. 12 This test was performed using the APTIMA COMBO2(R) Assay (GEN-PROBE(R). The analytical performance characteristics of this assay, when used to test SurePath(R) specimens have been determined by [facility]. 13 This test was performed using the APTIMA COMBO2(R) Assay (GEN-PROBE(R). The analytical performance characteristics of this assay, when used to test SurePath(R) specimens have been determined by [facility]. 14 This test was performed using the APTIMA COMBO2(R) Assay (GEN-PROBE(R). The analytical performance characteristics of this assay, when used to test SurePath(R) specimens have been determined by [facility]. 15 This test was performed using the APTIMA COMBO2(R) Assay (GEN-PROBE(R). The analytical performance characteristics of this assay, when used to test SurePath(R) specimens have been determined by [facility]. 16 GYNECOLOGICAL CYTOLOGY REPORT Thinprep TIS PAP w/rfx to HPV E6/E7 REPORT STATUS: FINAL CLINICAL INFORMATION: Information not provided SLIDES / SOURCE: 1 / Information not provided STATEMENT OF ADEQUACY: Satisfactory for evaluation. Endocervical/transformation zone component present. INTERPRETATION/RESULT: Negative for intraepithelial lesion or malignancy. COMMENT: This Pap test has been evaluated with computer assisted technology. COIN MACHINE ASSEMBLER: MELISSA KIDD(ASCP) For informational Purposes: All cytology specimens are processed and screened at [facility]. [address] [place] [phone] 17 This test was performed using the APTIMA COMBO2(R) Assay (GEN-PROBE(R). The analytical performance characteristics of this assay, when used to test SurePath(R) specimens have been determined by [facility]. 18 This test was performed using the APTIMA COMBO2(R) Assay (GEN-PROBE(R). The analytical performance characteristics of this assay, when used to test SurePath(R) specimens have been determined by [facility]. 19 NO GROWTH 20 This test was performed using the APTIMA COMBO2(R) Assay (GEN-PROBE(R). The analytical performance characteristics of this assay, when used to test SurePath(R) specimens have been determined by [facility]. 21 This test was performed using the APTIMA COMBO2(R) Assay (GEN-PROBE(R). The analytical performance characteristics of this assay, when used to test SurePath(R) specimens have been determined by [facility]. 22 This test was performed using the APTIMA COMBO2(R) Assay (GEN-PROBE(R). The analytical performance characteristics of this assay, when used to test SurePath(R) specimens have been determined by [facility]. 23 A NON-SPECIFIC TEST WAS ORDERED AND THE ABOVE ASSAY WAS PERFORMED. IF THIS IS NOT WHAT YOU INTENDED TO ORDER, PLEASE CONTACT YOUR LOCAL APPRAISAL MANAGER IMMEDIATELY AT SO THAT WE CAN ADJUST OUR BILLING APPROPRIATELY. YOU MAY ALSO INQUIRE ABOUT ALTERNATIVE OR ADDITIONAL TESTING. This test was performed using the APTIMA COMBO2(R) Assay (GEN-PROBE(R). The analytical performance characteristics of this assay, when used to test SurePath(R) specimens have been determined by [facility]. 24 GYNECOLOGICAL CYTOLOGY REPORT Thinprep TIS PAP w/rfx to HPV E6/E7 REPORT STATUS: FINAL CLINICAL INFORMATION: Routine exam LMP: [id number] SLIDES / SOURCE: 1 / Information not provided STATEMENT OF ADEQUACY: Satisfactory for evaluation. Endocervical/transformation zone component present. INTERPRETATION/RESULT: Negative for intraepithelial lesion or malignancy. COMMENT: This Pap test has been evaluated with computer assisted technology. COIN MACHINE ASSEMBLER: ERINN HERNANDEZ(ASCP) For informational Purposes: All cytology specimens are processed and screened at [facility]. [address] [place] [id number] 25 This test was performed using the APTIMA COMBO2(R) Assay (GEN-PROBE(R). The analytical performance characteristics of this assay, when used to test SurePath(R) specimens have been determined by [facility]. Procedures Date Code Description Status 04/26/2018 88313 Remove Intrauterine Device Completed 10/16/2016 73262 Insert Intrauterine Device Completed Encounters Type Date Location Provider Dx Diagnosis Office Visit 09/09/2018 NELSON Calvo NP Z11.3 Encntr screen for 12:30p infections w sexl mode of transmiss Z30.44 Encounter for surveillance of vagnl ring Z11.4 Encounter for screening for human immunodeficiency virus Z11.59 Encounter for screening for other viral diseases Z32.02 Encounter for test, result negative Z13.9 Encounter for screening, unspecified Office Visit 12/10/2017 2:30p NELSON Calvo NP Z11.3 Encntr screen for infections w sexl mode of transmiss Z30.431 Encounter for routine checking of intrauterine contracep dev Z11.4 Encounter for screening for human immunodeficiency virus Z11.59 Encounter for screening for other viral diseases Z13.9 Encounter for screening, unspecified Office Visit 10/16/2016 3:15p [facility] Melinda M Kelchner, TELEPHONE WORKER Z30.014 Encounter for initial prescription of uterin contracep dev Z30.430 Encounter for insertion of intrauterine contraceptive device Z32.02 Encounter for test, result negative Z11.3 Encntr screen for infections w sexl mode of transmiss Z13.1 Encounter for screening for diabetes mellitus Z11.4 Encounter for screening for human immunodeficiency virus Plan of Treatment Future Appointment(s):10/15/2018 11:30 am - Snehal Hutchinson at [facility]09/30/2018 - Melinda Calvo, NPZ11.3 Encounter for screening for infections with a predominantly sexual mode of transmissionNew Labs:Herpes Simplex Virus Culture W/RFX Type, Ordered: 09/30/18Comments:Small bump on her soft palate is likely from a bumping or burning the area. HSV cx obtained. Advisedpatient to swish and spit with salt mwxbjE29.012 Encounter for prescription of emergency contraceptionNew Medication:Plan B One-Step 1.5 mg - take one tab todayComments:UPIC yesterday. Administered Plan B today in office. Reviewed use of, side effects and precautions with patient who states understanding. RTO in 2 weeks for UPT or take home UPT if menses does not occur as expected.Follow up:2 weeks UPTB37.3 Candidiasis of vulva and vaginaComments:Hyphae seen on wet prep. Treat for Reva with otc yeast cream. Reviewed use of, side effects and precautions of medication with patient who states understanding. Instructed patient on genital hygeine.Z30.44 Encounter for surveillance of vaginal ring hormonal contraceptive deviceComments:Advised patient to insert ring today and use condoms/ bubc x 7 days
--- OUTSIDE RECORDS SUMMARY | 2018-10-16 07:29 | XMS REPORT | Continuity of Care Document ---
:1995 External Reference #:[id number] Author Name Melinda Calvo NP Address [address] [place] [id number] Care Team Providers Name Role Phone Juventino Hoyt MD Primary Care Physician Unavailable Payers Type Date Identification Numbers Payment Provider Subscriber Effective: 2018 Policy Number: [id number] Whitley Mcconnell PayID: [id number] [address] [address] MONICA Brower [address] Effective: 2018 Policy Number: [id number] Medicaid Pe ([facility]) Argelia Mcconnell Expires: 2018 PayID: [id number] [address] [place] [phone] Expires: 2016 Policy Number: [id number] Medicaid FPBP ([facility]) Argelia Mcconnell PayID: [id number] [address] [place] [phone] Expires: 2017 PayID: [id number] Medicaid Pe ([facility]) Argelia Mcconnell [address] [place] [phone] Effective: 2014 Policy Number: [id number] Whitley Mcconnell Expires: 2018 PayID: [id number] [address] [address] MONICA Brower [address] Advance Directives Description No Information Available Problems [...] Teaching Provided Regarding Naloxone/Narcan Training Available At [facility] Recreational Drug Use Sporadically uses states used a few Cocaine months ago, not planning on using again, thinks she shared her bill, November 2017 Smoking Status Reviewed: 09/09/18 Patient is a former only would take puff smoker from a cigarette Tattoo/Piercing Negative For Tattoo [address] [facility] 15 Years Old STD's No STD History UNKNOWN 01/20/2018 Never E-Cigarette User Allergies, Adverse Reactions, Alerts Date Description Reaction Status Severity Comments 08/28/2015 Latex Active 08/28/2015 Penicillin Active 08/28/2015 Clindamycin Active 08/28/2015 Amoxicillin Active 08/28/2015 Sulfa Antibiotics Active 12/10/2017 Cipro Active 12/10/2017 Levaquin Active Medications Medication Date Status Form Strength Qnty SIG Indications Ordering Provider [facility] 09/09 Active Ring 0.12-0.01 1unit insert Z30.44 Melinda 5mg/24HR s vaginally edmund Calvo NP remove in 3 weeks as directed. Then place new ring one week later. Jessica 10/16 Administered IUD 13.5mg Z30.014 SANDEEP Calvo Latuda Active Unknown /0000 Diflucan [...] on the of the ; each month Terconazole 09/11 Hx Cream 0.4% 45gm one B37.3 applicatorfu [place], - l vaginally [employer] 12/10 x 7 days at bedtime Nuvaring 09/04 Hx Ring 0.12-0.01 3unit Insert Z30.40 Melinda 5mg/24HR s vaginally [place], - monthly [employer] 10/16 Remove in weeks As directed Depakote 00/ Hx Unknown /0000 - 09/11 Immunizations Description No Information Available Vital Signs Date Vital Result Comment 09/24/2018 1:53pm BP Systolic 117 mmHg BP [...] Mass Index) 25.7 kg/m2 Last Menstrual Period [id number] Results Test Date Facility Test Result H/L Range Note Chlamydia/N 09/09/[address] [facility] [address],Rna,Tma, NOT DETECTED Not Detected 1 [facility] Rna Tma Urogenital Urogenit GC Rna,Tma,Urogen NOT DETECTED Not Detected 2 Laboratory test finding 09/09/2018 [facility] Test Urine..... negative Laboratory test finding 09/09/2018 [facility] HIV Rapid... non reactive Hep C Rapid Test non reactive Chlamydia/N 04/19/[address] [facility] [address],Rna,Tma,Urogenital NOT DETECTED Not Detected 3 [place] Rna Tma Urogenit GC Rna,Tma,Urogen NOT DETECTED Not Detected 4 Laboratory test 04/19/2018 [facility] HIV Rapid... non reactive finding Chlamydia/N 01/20/[address] [facility] [address],Rna,Tma,Urogen NOT DETECTED Not Detected 5 [place] Rna Tma ital Urogenit GC Rna,Tma,Urogen NOT DETECTED Not Detected 6 Laboratory test 01/20/2018 [facility] RPR W/Titer and NON-REACTIVE Non- Reactive 7 finding Conf RFX Laboratory test 01/20/2018 [facility] Test negative finding Urine..... Laboratory test 12/10/2017 [facility] HIV Rapid... non reactive finding Hep C Rapid Test non reactive Wet Prep.... 12/10/2017 [facility] WBC Smear few Clue Cells Vag Fluid Wet Prep 0 Reva Wet Prep 0 Lactobacillus Wet Prep many Whiff Wet Prep neg. Bacteria Wet Prep n/a PH Wet Prep 4.5 Misc Other Test no trich seen Chlam 12/10/2017 [facility] C.Trachomatis NOT DETECTED Not Detected 8 Trach/Neisseria Rna,Tma Gonorroeae Rna Tma N.Gonorrhoeae Rna,Tma NOT DETECTED Not Detected 9 Laboratory test finding 09/11/2017 [facility] HIV Rapid... non reactive Hep C Rapid Test non reactive HGB Blood.... 12.8 Thinprep Pap [employer] Glazer W/RFX HPV HR 09/11/2017 [facility] Results SEE NOTE 10 Wet Prep.... 09/11/2017 [facility] WBC Smear few Clue Cells Vag Fluid Wet Prep 0 Reva Wet Prep hyphaen and buds Lactobacillus Wet Prep many Whiff Wet Prep neg. Bacteria Wet Prep n/a PH Wet Prep 4.5 [facility] [place] Test no trich seen Chlam 09/11/2017 [facility] C.Trachomatis NOT DETECTED Not Detected 11 Trach/Neisseria Rna,Tma Gonorroeae Rna Tma N.Gonorrhoeae Rna,Tma NOT DETECTED Not Detected 12 Chlam 11/10/2016 [facility] C.Trachomatis NOT DETECTED Not Detected 13 Trach/Neisseria Rna,Tma Gonorroeae Rna Tma N.Gonorrhoeae Rna,Tma NOT DETECTED Not Detected 14 Culture,Urine,Voided 11/10/2016 [facility] URINE Final Report SEE NOTE 15 Urinalysis DIP Only.... 11/10/2016 [facility] Urine Leukocyte Esterase QN N Urine Nitrite QN N Urine Blood ++ Urine PH 8.0 Urine Protein Random ++ Urine Ketone Random N Urine Glucose QN Random N Laboratory test finding 11/10/2016 [facility] Test Urine..... neg Wet Prep.... 11/10/2016 [facility] WBC Smear neg Clue Cells Vag Fluid Wet Prep neg Reva Wet Prep neg Lactobacillus Wet Prep neg Whiff Wet Prep neg Bacteria Wet Prep na PH Wet Prep 4.5 [facility] [place] Test No trich Chlam 10/16/2016 [facility] C.Trachomatis NOT DETECTED Not Detected 16 Trach/Neisseria Rna,Tma Gonorroeae Rna Tma N.Gonorrhoeae Rna,Tma NOT DETECTED Not Detected 17 Laboratory test finding 10/16/2016 [facility] HIV Rapid... non reactive Laboratory test finding 10/16/2016 [facility] Test Urine..... neg Urinalysis DIP Only.... 10/16/2016 [facility] Urine Leukocyte Esterase N QN Urine Nitrite QN N Urine Blood N Urine PH 8.0 Urine Protein Random tr Urine Ketone Random N Urine Glucose QN Random N Wet Prep.... 09/04/2015 [facility] WBC Smear 0-1 Clue Cells Vag Fluid Wet Prep none Reva Wet Prep none Lactobacillus Wet Prep few Whiff Wet Prep negative Bacteria Wet Prep none PH Wet Prep 4.5 [facility] [place] Test no trich seen Thinprep Pap [employer] Glazer 09/04/2015 [facility] Results SEE NOTE 18 W/RFX HPV Mrna E6/E7 Laboratory test 09/04/2015 [facility] C.Trachomatis NOT DETECTED Not Detected 19 finding Rna,Tma W/RFX N.Gonorrhoeae Rna,Tma [facility] 09/04/2015 [facility] HGB Blood.... 12.5 Set Urinalysis DIP 09/04/2015 [facility] Urine Leukocyte tr Only.... Esterase QN Urine Nitrite QN N Urine Blood N Urine PH 9 Urine Protein Random ++ Urine Ketone Random N Urine Glucose QN Random N Laboratory test finding 09/04/2015 [facility] HIV Rapid... non reactive 1 This test was performed using the APTIMA COMBO2(R) Assay (GEN-PROBE(R). The analytical performance characteristics of this assay, when used to test SurePath(R) specimens have been determined by [facility]. 2 This test was performed using [...] have been determined by [facility]. 5 This test was performed using the APTIMA COMBO2(R) Assay (GEN-PROBE(R). The analytical performance characteristics of this assay, when used to test SurePath(R) specimens have been determined by [facility]. 6 This test was performed using the APTIMA COMBO2(R) Assay (GEN-PROBE(R). The analytical performance characteristics of this assay, when used to test SurePath(R) specimens have been determined by [facility]. 7 The RPR is a gft-mqmfftqtyw-otbldycb test; therefore a treponemal-specific confirmatory test should be performed unless prior syphilis infection has been documented for the patient. 8 This test was performed using the APTIMA COMBO2(R) Assay (GEN-PROBE(R). The analytical performance characteristics of this assay, when used to test SurePath(R) specimens have been determined by [facility]. 9 This test was performed using the APTIMA COMBO2(R) Assay (GEN-PROBE(R). The analytical performance characteristics of this assay, when used to test SurePath(R) specimens have been determined by [facility]. 10 GYNECOLOGICAL CYTOLOGY REPORT Thinprep TIS PAP w/rfx to HPV E6/E7 REPORT STATUS: FINAL CLINICAL INFORMATION: Information not provided SLIDES / SOURCE: 1 / Information not provided STATEMENT OF ADEQUACY: Satisfactory for evaluation. Endocervical/transformation zone component present. INTERPRETATION/RESULT: Negative for intraepithelial lesion or malignancy. COMMENT: This Pap test has been evaluated with computer assisted technology. CLIENT INTEGRATION MANAGER: MELISSA KIDD(ASC) For informational Purposes: All cytology specimens are processed and screened at [facility]. [address] [place] [address] 11 This test was performed using the APTIMA COMBO2(R) Assay (GEN-PROBE(R). The analytical performance characteristics of this assay, when used to test SurePath(R) specimens have been determined by [facility]. 12 This test was performed using [...] test SurePath(R) specimens have been determined by [facility]. 15 NO GROWTH 16 This test was performed using the APTIMA COMBO2(R) Assay (GEN-PROBE(R). The analytical performance characteristics of this assay, when used to test SurePath(R) specimens have been determined by [facility]. 17 A NON-SPECIFIC TEST WAS ORDERED AND THE ABOVE ASSAY WAS PERFORMED. IF THIS IS NOT WHAT YOU INTENDED TO ORDER, PLEASE CONTACT YOUR LOCAL RECREATIONAL VEHICLE REPAIRER IMMEDIATELY AT SO THAT WE CAN ADJUST OUR BILLING APPROPRIATELY. YOU MAY ALSO INQUIRE ABOUT ALTERNATIVE OR ADDITIONAL TESTING. This test was performed using the APTIMA COMBO2(R) Assay (GEN-PROBE(R). The analytical performance characteristics of this assay, when used to test SurePath(R) specimens have been determined by [facility]. 18 GYNECOLOGICAL CYTOLOGY REPORT Thinprep TIS PAP w/rfx to HPV E6/E7 REPORT STATUS: FINAL CLINICAL INFORMATION: Routine exam LMP: [id number] SLIDES / SOURCE: 1 / Information not provided STATEMENT OF ADEQUACY: Satisfactory for evaluation. Endocervical/transformation zone component present. INTERPRETATION/RESULT: Negative for intraepithelial lesion or malignancy. COMMENT: This Pap test has been evaluated with computer assisted technology. CLIENT INTEGRATION MANAGER: ERINN HERNANDEZ(ASCP) For informational Purposes: [email or web address] [address] [place] [id number] 19 This test was performed using the APTIMA COMBO2(R) Assay (GEN-PROBE(R). The analytical performance characteristics of this assay, when used to test SurePath(R) specimens have been determined by [facility]. Procedures Date Code Description Status 04/26/2018 47496 Remove Intrauterine Device Completed 10/16/2016 63087 Insert Intrauterine Device Completed Encounters Type Date [...] unspecified Office Visit 10/16/2016 3:15p [facility] Melinda Calvo NP Z30.014 Encounter for initial prescription of uterin contracep dev Z30.430 Encounter for insertion of intrauterine contraceptive device Z32.02 Encounter for test, result negative Z11.3 Encntr screen for infections w sexl mode of transmiss Z13.1 Encounter for screening for diabetes mellitus Z11.4 Encounter for screening for human immunodeficiency virus Plan of Treatment 09/24/2018 - Melinda Calvo NPZ11.3 Encounter for screening for infections with a predominantlyComments:Reviewed STD risks and prevention with patient. Patient states understanding. Condoms given to patient.Z30.44 Encounter for surveillance of vaginal ring hormonal contraceComments:Patient to continue use of Nuvaring. She is very happy with it. Reviewed proper use of, side effectsand precautions. Advised patient that she is to place a new ring 7 days after taking out the prior ring regardless if she is still on her menses. Patient states understanding. She is aware of ECP.R21 Rash and other nonspecific skin eruptionComments:Likely excoriation. HSV Cx taken. Advised patient that she could have a yeast infection but she declines wet prep.
[2018-10-16 07:36] VITALS: BP 110/68
--- NOTE | 2018-10-16 08:22 | UC ---
Skin Complaint HPI - HPI Summary HPI Summary: Pt c/o itchy rash right inner groin X "several days". Pt is concerned that it is herpes. Pt also c/o spontaneous eruption of "itchy bumps/rash" that occur randomly on any part of body/skin. Pt states she does not currently have any outbreak of this rash. - History of Current Complaint Chief Complaint: UCSkin Time Seen by Provider: 10/16/18 08:04 Stated Complaint: SKIN COMPLAINT Hx Obtained From: Patient Hx Last Menstrual Period: 3 weeks ago ?: No Onset/Duration: Sudden Onset, Lasting Days, Still Present, Resolved - itchy bumpy rash of second c/o not present at time of exam. Onset Severity: Mild Current Severity: Mild Pain Intensity: 0 Location: Discrete - right inner groin Character: Pruritus Aggravating Factor(s): Nothing Alleviating Factor(s): Unknown Associated Signs & Symptoms: Positive: Rash - Allergy/Home Medications Allergies/Adverse Reactions: Allergies Allergy/AdvReac Type Severity Reaction Status Date / Time amoxicillin Allergy Swelling Verified 10/16/18 07:28 clindamycin Allergy Rash Verified 10/16/18 07:28 Penicillins Allergy Swelling Verified 10/16/18 07:28 Sulfa (Sulfonamide Allergy Rash Verified 10/16/18 07:28 Antibiotics) fluoroquinolones Allergy anxiety Uncoded 10/16/18 07:28 depression PMH/Surg Hx/FS Hx/Imm Hx Previously Healthy: Yes - Surgical History Surgical History: Yes Surgery Procedure, Year, and Place: fatty tumor, right eye x 2 - Family History Known Family History: Positive: Unknown Negative: Cardiac Disease, Hypertension - Social History Occupation: Employed Full-time Lives: With Family Alcohol Use: Occasionally Alcohol Amount: pt states she quit ETOH approx 1 mo ago Substance Use Type: None Substance Use Comment - Amount & Last Used: end of March 2018 Smoking Status (MU): Never Smoked Tobacco Type: Cigarettes Amount Used/How Often: ONCE A MONTH Length of Time of Smoking/Using Tobacco: 2 YRS Have You Smoked in the Last Year: Yes When Did the Patient Quit Smoking/Using Tobacco: December, - Immunization History Vaccination Up to Date: Yes Review of Systems All Other Systems Reviewed And Are Negative: Yes Constitutional: Positive: Negative Skin: Positive: Rash Eyes: Positive: Negative ENT: Positive: Negative Respiratory: Positive: Negative Cardiovascular: Positive: Negative Gastrointestinal: Positive: Negative Genitourinary: Positive: Negative Motor: Positive: Negative Neurovascular: Positive: Negative Musculoskeletal: Positive: Negative Neurological: Positive: Negative Psychological: Positive: Negative Is Patient Immunocompromised?: No Physical Exam Triage Information Reviewed: Yes Appearance: Well-Appearing Vital Signs: Initial Vital Signs Temp 98.6 F 10/16/18 07:29 Pulse 85 10/16/18 07:29 Resp 16 10/16/18 07:29 BP 110/68 10/16/18 07:29 Pulse Ox 100 10/16/18 07:29 Vital Signs Reviewed: Yes Eye Exam: Normal ENT Exam: Normal ENT: Positive: Hearing grossly normal Dental Exam: Normal Neck exam: Normal Respiratory: Positive: No respiratory distress Musculoskeletal Exam: Normal Neurological Exam: Normal Psychological Exam: Normal Skin Exam: Other - shiny excoriated skin area right inner groin ~ size half dollar size. Course/Dx - Course Course Of Treatment: I discussed that I believe her c/o of spontaneaous itchy rash is associated with her dry skin and to use unscented lotion to keep skin well lubricated. I also discussed that I did not think that the rash in her groin was herpes and that she had topical yeast infection. Pt verbalizede understanding and agreed to plan of care. - Differential Diagnoses - Skin Complaint Differential Diagnoses: Contact Dermatitis, Tinea - Diagnoses Provider Diagnosis: Tinea Discharge - Sign-Out/Discharge Documenting (check all that apply): Patient Departure All imaging exams completed and their final reports reviewed: No Studies - Discharge Plan Condition: Stable Disposition: HOME Prescriptions: Fluconazole 150 MG TAB* [Diflucan 150 MG TAB*] 150 mg PO UC ONCE #3 tablet Terbinafine HCl [Antifungal] 15 gm TP DAILY 7 Days #1 tube Patient Education Materials: Yousuf Itch (ED), Skin Yeast Infection (ED) Referrals: Juventino Hoyt MD [Primary Care Provider] - If Needed - Billing Disposition and Condition Condition: STABLE Disposition: Home - Attestation Statements Provider Attestation: I was available for consult. This patient was seen by the AIDEE. The patient was not presented to, seen by, or examined by me. EK
== END 2018-10-16 08:33 | disposition home or self-care (01) ==
LOC: UCCORT 07:18
DX: B35.9 Dermatophytosis, unspecified (principal); Z88.0 Allergy status to penicillin; Z88.1 Allergy status to other antibiotic agents; Z88.2 Allergy status to sulfonamides
CPT/HCPCS: 99212; G0463

== ENCOUNTER 2019-06-30 20:51 | Emergency (ER) | payer BC ==
--- OUTSIDE RECORDS SUMMARY | 2019-06-30 20:59 | XMS REPORT | Continuity of Care Document ---
:1995 External Reference #:[id number] Author Name Juventino Hoyt MD (transmitted by agent of provider Madhu Paul) Address [address] [place] [address] Care Team Providers Name Role Phone Temi Del Valle MD - Family Care Team Information Engine Watchman [phone] Medicine Juventino Hoyt MD - Family Care Team Information Engine Watchman [phone] Medicine Problems Active Problems Provider Date Anxiety Onset: 05/26/2016 Bipolar affective disorder, currently manic, severe, EUNICE Stover Onset: 11/2018 with psychosis Social History Type Date Description Comments Sex Unknown ETOH Use Rarely consumes alcohol ETOH Use Currently consumes 3 nights per week alcohol Tobacco Use Reviewed: Patient has never smoked 01/28/17 Recreational Drug Use Denies Drug Use Smoking Status Reviewed: Patient has never smoked 03/13/19 Exercise Type/Frequency Exercises sporadically Allergies, Adverse Reactions, Alerts Active Allergies Reaction Severity Comments Date Sulfa 06/13/2010 Penicillins 06/13/2010 Levofloxacin 03/11/2016 Clindamycin 03/11/2016 Ciprofloxacin 09/10/2018 Penicillin 09/10/2018 Amoxicillin 09/10/2018 Sulfa Antibiotics 09/10/2018 Levofloxacin 09/10/2018 Medications Active Medications SIG Qnty Indications Ordering Provider Date Jessica Jauregui 07/06/2017 13.5mg IUD MD Lai Naprosyn twice daily 30tabs 717.7 Leo Romero M.D. 06/13/2010 500mg Tablets with food prn Latuda Unknown 20mg Tablets Medications Administered in Office Medication SIG Qnty Indications Ordering Provider Date PPD Injection Unknown 03/08/2018 Immunizations CPT Code Status Date Vaccine Lot # [id number] Given 05/23/2019 Influ Virus Vaccine, Quadrivalent, Split Virus, [place] [address] Given 05/23/2019 Influenza Virus Vaccine, Quadrivalent, Split, Preservative Free 71966 Given 03/08/2018 Varicella (Chicken Pox) Immunization 49578 Given 03/08/2018 Tdap - Tetanus/Diptheria/Acellular Pertussis 64887 Given 07/19/2012 Human Papillomavirus Vaccine Types; Nonavalent [address] [place] [address] Given 07/18/2010 Human Papillomavirus Vaccine Types; Nonavalent 3 [place] [address] Given 05/14/2010 Human Papillomavirus Vaccine Types; Nonavalent 3 [place] [address] Given 08/29/2008 Hepatitis A Vaccine Pediatric/Adolescent Dosage 2 Dose Schedule 70027 Given 08/24/2007 Varicella (Chicken Pox) Immunization 10242 Given 08/24/2007 Tdap - Tetanus/Diptheria/Acellular Pertussis 63644 Given 08/24/2007 Hepatitis A Vaccine Pediatric/Adolescent Dosage 2 Dose Schedule 46140 Given 08/11/2006 Meningitis MCV4 MenACWY Meningococcal Conjugate Vaccine 32688 Given 02/15/1998 Measles Mumps And Rubella MMR 44421 Given 12/02/1995 DTP Toxoids & Hib Vaccine 33980 Given 12/02/1995 Measles Mumps And Rubella MMR 02267 Given 03/11/1995 Hep B Pediatric/Adolescent 01050 Given 03/11/1995 DTP Toxoids & Hib Vaccine 89935 Given 03/11/1995 Poliovirus Vaccine OPV Live Oral Use 05320 Given 1994 Hep B Pediatric/Adolescent 49832 Given 1994 DTP Toxoids & Hib Vaccine 92565 Given 1994 Poliovirus Vaccine OPV Live Oral Use 49426 Given 1994 Hep B Pediatric/Adolescent 44436 Given 1994 DTP Toxoids & Hib Vaccine 26375 Given 1994 Poliovirus Vaccine OPV Live Oral Use Vital Signs Date Vital Result Comment 05/26/2019 3:43pm Height 64.5 inches 5'4.50" Weight 175.00 lb BMI (Body Mass Index) 29.6 kg/m2 03/09/2019 1:21pm Height 65 inches 5'5" Weight 174.25 lb BP Systolic Sitting 102 mmHg BP Diastolic Sitting 50 mmHg Respiratory Rate 12 /min Body Temperature 98.8 F BMI (Body Mass Index) 29.0 kg/m2 Results Description No Information Available Procedures Description No Information Available Medical Devices Description No Information Available Encounters Type Date Location Provider Dx Diagnosis Office Visit 03/09/2019 [facility] EUNICE Stover Z00.01 Encounter for 1:30p general adult medical exam w abnormal findings Assessments Date Code Description Provider 03/09/2019 Z00.01 Encounter for general adult medical examination with EUNICE Stover Plan of Treatment Future Appointment(s):03/12/2020 2:15 pm - EUNICE Stover at [facility]11/2018 - Celine Morris PAZ00.01 Encounter for general adult medical examination with abnormjosef Functional Status Description No Information Available Mental Status Description No Information Available Referrals Description No Information Available
[2019-06-30 21:11] VITALS: BP 108/74
--- NOTE | 2019-06-30 21:44 | UC ---
Complaint Female HPI - HPI Summary HPI Summary: Pt presents with c/o intermittent genital pain and occasional bright red blood noticed with urination and wiping with Toilet paper. Pt states that she had sexual intercourse with a new partner 5 days ago and states that he "was larger " than she has had before and believes that he may have injured or tore her. Pt has concern for Chlamydia because she was told that the partner she was with may have it. - History Of Current Complaint Chief Complaint: UCSTDScreening Stated Complaint: URINARY Time Seen by Provider: 06/30/19 21:24 Hx Obtained From: Patient Hx Last Menstrual Period: 2.5 weeks ago ?: No Onset/Duration: Sudden Onset, Lasting Days, Still Present Timing: Intermittent, Lasting Seconds Severity Initially: Mild Severity Currently: Mild Pain Intensity: 6 Character: Dull, Burning Aggravating Factor(s): Urination Associated Signs And Symptoms: Positive: Vaginal Bleeding/Discharge - Risk Factors Ectopic Risk Factor: Negative Ovarian Torsion Risk Factor: Reproductive Age - Allergies/Home Medications Allergies/Adverse Reactions: Allergies Allergy/AdvReac Type Severity Reaction Status Date / Time amoxicillin Allergy Swelling Verified 10/16/18 07:28 clindamycin Allergy Rash Verified 10/16/18 07:28 Penicillins Allergy Swelling Verified 10/16/18 07:28 Sulfa (Sulfonamide Allergy Rash Verified 10/16/18 07:28 Antibiotics) fluoroquinolones Allergy anxiety Uncoded 10/16/18 07:28 depression Home Medications: Home Medications Iud 06/30/19 [History] PMH/Surg Hx/FS Hx/Imm Hx Previously Healthy: Yes - Surgical History Surgical History: Yes Surgery Procedure, Year, and Place: fatty tumor, right eye x 2 - Family History Known Family History: Positive: Unknown Negative: Cardiac Disease, Hypertension - Social History Occupation: Employed Full-time Lives: With Family Alcohol Use: Occasionally Alcohol Amount: pt was under the influence of ETOH at time of intercourse Substance Use Type: None Substance Use Comment - Amount & Last Used: end March 2018 Smoking Status (MU): Never Smoked Tobacco Type: Cigarettes Amount Used/How Often: ONCE A MONTH Length of Time of Smoking/Using Tobacco: 2 YRS Have You Smoked in the Last Year: No When Did the Patient Quit Smoking/Using Tobacco: December, - Immunization History Vaccination Up to Date: Yes Review of Systems All Other Systems Reviewed And Are Negative: Yes Constitutional: Positive: Negative Skin: Positive: Negative Eyes: Positive: Negative ENT: Positive: Negative Respiratory: Positive: Negative Cardiovascular: Positive: Negative Gastrointestinal: Positive: Negative Genitourinary: Positive: Vaginal/Penile Pain, Vaginal/Penile Tenderness, Abnormal Bleeding Motor: Positive: Negative Neurovascular: Positive: Negative Musculoskeletal: Positive: Negative Neurological: Positive: Negative Psychological: Positive: Negative Is Patient Immunocompromised?: No Physical Exam Triage Information Reviewed: Yes Appearance: Well-Appearing Vital Signs: Initial Vital Signs Temp 100.5 F 06/30/19 21:03 Pulse 108 06/30/19 21:03 Resp 18 06/30/19 21:03 BP 108/74 06/30/19 21:03 Pulse Ox 100 06/30/19 21:03 Vital Signs Reviewed: Yes Eye Exam: Normal ENT Exam: Normal Dental Exam: Normal Neck exam: Normal Respiratory Exam: Normal Respiratory: Positive: No respiratory distress Pelvic Exam: Positive: External Exam Normal Musculoskeletal Exam: Normal Neurological Exam: Normal Psychological Exam: Normal Skin Exam: Normal Complaint Female Dx - Course Course Of Treatment: Pt denies urinary symptoms of frequency, urgency and dysuria. Pt stated she wanted to wait for STD testing results instead of prophylactic treatment offered at . - Differential Dx/Diagnosis Differential Diagnosis/HQI/PQRI: Urinary Tract Infection Provider Diagnosis: Vaginal pain Discharge ED - Sign-Out/Discharge Documenting (check all that apply): Patient Departure All imaging exams completed and their final reports reviewed: No Studies - Discharge Plan Condition: Stable Disposition: HOME Patient Education Materials: Pelvic Pain in Women (ED) Referrals: Juventino Hoyt MD [Primary Care Provider] - If Needed Additional Instructions: Please follow up with you PCP as soon as possible. - Billing Disposition and Condition Condition: STABLE Disposition: Home
[2019-07-04 12:32] LABS: Chlamydia trachomatis NAA Negative (Negative); Neisseria gonorrhoeae (GC) NAA Negative (Negative)
--- NOTE | 2019-07-05 07:27 | UC ---
- Progress Note Progress Note: neg Gc, CH no change zenaj Course/Dx - Diagnoses Provider Diagnoses: Vaginal pain Discharge ED - Sign-Out/Discharge Documenting (check all that apply): Post-Discharge Follow Up All imaging exams completed and their final reports reviewed: No Studies - Discharge Plan Condition: Stable Disposition: HOME Patient Education Materials: Pelvic Pain in Women (ED) Referrals: Juventino Hoyt MD [Primary Care Provider] - If Needed Additional Instructions: Please follow up with you PCP as soon as possible. - Billing Disposition and Condition Condition: STABLE Disposition: Home
== END 2019-06-30 21:55 | disposition home or self-care (01) ==
LOC: UCCORT 20:51
DX: R10.2 Pelvic and perineal pain (principal); N93.9 Abnormal uterine and vaginal bleeding, unspecified; Z88.0 Allergy status to penicillin; Z88.1 Allergy status to other antibiotic agents; Z88.2 Allergy status to sulfonamides; Z88.8 Allergy status to other drugs, medicaments and biological substances
CPT/HCPCS: 81003; 87086; 87491; 87591; 99211; G0463

== ENCOUNTER 2019-07-02 11:03 | Emergency (ER) | payer BC ==
[2019-07-02 12:23] VITALS: BP 109/68
[2019-07-02] MEDS ORDERED: Azithromycin TAB* 250 MG PO ONE ×2 (12:33→12:39)
--- NOTE | 2019-07-02 13:28 | UC ---
Complaint Female HPI - HPI Summary HPI Summary: Pt returns to with c/o of worsening symptoms of vaginal discharge and pain with eye movement. Pt was seen here 2 days ago with concern for STD exposure. The pt was given the option to be treated at time of visit for possible STI exposure but declined and stated that she would wait for the test results. Pt now returns for request for treatment. - History Of Current Complaint Chief Complaint: UCGU Stated Complaint: PERSONAL Time Seen by Provider: 07/02/19 12:17 Hx Obtained From: Patient Hx Last Menstrual Period: 2.5 weeks ago ?: No Onset/Duration: Sudden Onset - yesterday morning, Resolved Severity Initially: Mild Severity Currently: None Pain Intensity: 0 Pain Scale Used: 0-10 Numeric Aggravating Factor(s): Other - standing upright. and eye movement Associated Signs And Symptoms: Positive: Vaginal Discharge - Risk Factors Ectopic Risk Factor: Negative Ovarian Torsion Risk Factor: Reproductive Age - Allergies/Home Medications Allergies/Adverse Reactions: Allergies Allergy/AdvReac Type Severity Reaction Status Date / Time amoxicillin Allergy Swelling Verified 07/02/19 12:23 clindamycin Allergy Rash Verified 07/02/19 12:23 Penicillins Allergy Swelling Verified 07/02/19 12:23 Sulfa (Sulfonamide Allergy Rash Verified 07/02/19 12:23 Antibiotics) fluoroquinolones Allergy anxiety Uncoded 07/02/19 12:23 depression PMH/Surg Hx/FS Hx/Imm Hx Previously Healthy: Yes - Surgical History Surgical History: Yes Surgery Procedure, Year, and Place: fatty tumor, right eye x 2 - Family History Known Family History: Positive: Unknown Negative: Cardiac Disease, Hypertension - Social History Occupation: Employed Full-time Lives: With Family Alcohol Use: Occasionally Alcohol Amount: pt was under the influence of ETOH at time of intercourse Substance Use Type: None Substance Use Comment - Amount & Last Used: end March 2018 Smoking Status (MU): Never Smoked Tobacco Type: Cigarettes Amount Used/How Often: ONCE A MONTH Length of Time of Smoking/Using Tobacco: 2 YRS Have You Smoked in the Last Year: No When Did the Patient Quit Smoking/Using Tobacco: December, - Immunization History Vaccination Up to Date: Yes Review of Systems All Other Systems Reviewed And Are Negative: Yes Constitutional: Positive: Negative Skin: Positive: Negative Eyes: Positive: Other - eye pain ENT: Positive: Negative Respiratory: Positive: Negative Cardiovascular: Positive: Negative Gastrointestinal: Positive: Negative Genitourinary: Positive: Vaginal/Penile Discharge Motor: Positive: Negative Neurovascular: Positive: Negative Musculoskeletal: Positive: Negative Neurological: Positive: Negative Psychological: Positive: Negative Is Patient Immunocompromised?: No Physical Exam Triage Information Reviewed: Yes Appearance: Well-Appearing Vital Signs: Initial Vital Signs Temp 99.2 F 07/02/19 12:17 Pulse 102 07/02/19 12:17 Resp 16 07/02/19 12:17 BP 109/68 07/02/19 12:17 Pulse Ox 100 07/02/19 12:17 Vital Signs Reviewed: Yes Eye Exam: Normal Eyes: Positive: Conjunctiva Clear ENT Exam: Normal ENT: Positive: Hearing grossly normal Neck exam: Normal Respiratory: Positive: No respiratory distress Abdomen Description: Positive: Nontender Musculoskeletal Exam: Normal Neurological Exam: Normal Psychological Exam: Normal Skin Exam: Normal Complaint Female Dx - Differential Dx/Diagnosis Differential Diagnosis/HQI/PQRI: Sexually Transmitted Disease, Urinary Tract Infection Provider Diagnosis: Vaginal discharge, Eye pain Discharge ED - Sign-Out/Discharge Documenting (check all that apply): Patient Departure All imaging exams completed and their final reports reviewed: No Studies - Discharge Plan Condition: Stable Disposition: HOME Prescriptions: DOXYcycline CAP(*) [DOXYcycline 100MG CAP(*)] 100 mg PO Q12H #14 cap Patient Education Materials: Sexually Transmitted Diseases (ED), Safe Sex (ED) Referrals: Juventino Hoyt MD [Primary Care Provider] - As Soon As Possible Additional Instructions: Please follow up with your PCP as soon as needed. Please note that your test results have not been completed and we are treating you prophylactically at your request. Please follow up with your PCP. Do not engage in any sexually activity until the test results are finalized and/or you have completed the full prescription of medication we have provided. If your symptoms do not improve or they worsen, please seek care as soon as possible at the closest emergency room. - Billing Disposition and Condition Condition: STABLE Disposition: Home
== END 2019-07-02 13:01 | disposition home or self-care (01) ==
LOC: UCCORT 11:03
DX: N89.8 Other specified noninflammatory disorders of vagina (principal); H57.9 Unspecified disorder of eye and adnexa; Z88.0 Allergy status to penicillin; Z88.1 Allergy status to other antibiotic agents
CPT/HCPCS: 99212; A9270-GY; G0463

== ENCOUNTER 2023-04-18 18:22 | Inpatient (IN) ==
[2023-04-18 21:16] LABS: Urine Appearance Clear; Urine Bilirubin Negative (Negative); Urine Blood Negative (Negative); Urine Color Yellow; Urine Glucose Negative (Negative); Urine Ketones Negative (Negative); Urine Nitrite Negative (Negative); Urine Protein Negative (Negative); Urine Urobilinogen Negative (Negative)
[2023-04-18 21:30] LABS: ABS Basophils 0.1 10^3/uL (0.0-0.1); ABS Eosinophils 0.1 10^3/uL (0.0-0.5); ABS Lymphocytes 2.1 10^3/uL (1.0-4.8); ABS Neutrophils 8.4 10^3/uL (1.5-7.6); Eosinophil % 0.7 %; Hematocrit 39.6 % (35-45); Hemoglobin 13.4 g/dL (11.5-14.3); Mean Corpuscular Hemoglobin 29.6 pg (27-33); Mean Corpuscular Volume 87.1 fL (80-97); Mean Platelet Volume 7.5 fL (7.5-11.2); Platelet Count 326 10^3/uL (150-450); Red Blood Count 4.54 10^6/uL (3.63-4.92); Red Cell Distribution Width 13.4 % (12-17); White Blood Count 11.7 10^3/uL (3.8-11.8)
[2023-04-18 21:31] LABS: Urine Benzodiazepine Screen None Detected (None Detect); Urine Cannabinoids Screen None Detected (None Detect); Urine Opiates Screen None Detected (None Detect)
[2023-04-18 21:46] LABS: ALT 16 U/L (7-52); AST 18 U/L (13-39); Albumin 4.6 g/dL (3.2-5.2); Albumin/Globulin Ratio 1.4 (1-3); Alkaline Phosphatase 90 U/L (35-149); Anion Gap 12 mmol/L (2-16); Blood Urea Nitrogen 9 mg/dL (6-24); CO2 Carbon Dioxide 23 mmol/L (22-32); Calcium 10.1 mg/dL (8.6-10.3); Chloride 102 mmol/L (101-111); Creatinine, Serum 0.86 mg/dL (0.51-0.95); Globulin 3.2 g/dL (2-4); Glucose 94 mg/dL (70-100); Potassium 3.6 mmol/L (3.5-5.0); Sodium 137 mmol/L (135-145); Total Protein 7.8 g/dL (6.4-8.9); eGFR CKD-EPI 94.3 (>60)
[2023-04-18 21:52] LABS: HCG Pregnancy 0.95 mIU/mL
[2023-04-18 22:08] LABS: Acetaminophen < 15 mcg/mL; Alcohol, S < 13 mg/dL (<13); Lithium 0.81 mmol/L (0.6-1.2); Salicylate < 2.50 mg/dL (<30)
[2023-04-18 22:23] LABS: TSH Ultra Thyroid Stim Horm 3.04 mcIU/mL (0.34-5.60)
[2023-04-19] MEDS ORDERED: Al Hydrox/Mg Hydrox/Simet LIQ 30 ML UDC PO PRN (12:18)
[2023-04-20] MEDS: Vitamin THERAPEUTIC TAB PO SCH (09:04)
[2023-04-20] MEDS: Nicotine GUM 2MG FRUIT FLAVOR PO PRN ×2 (18:34→20:37)
[2023-04-21] MEDS: Vitamin THERAPEUTIC TAB PO SCH (09:40)
[2023-04-21] MEDS: Nicotine GUM 2MG FRUIT FLAVOR PO PRN ×3 (09:46→21:17)
[2023-04-22 08:51] LABS: HDL Cholesterol 56.1 mg/dL
[2023-04-22] MEDS: Nicotine GUM 2MG FRUIT FLAVOR PO PRN ×2 (09:12→18:12)
[2023-04-22] MEDS: Vitamin THERAPEUTIC TAB PO SCH (09:12)
[2023-04-23] MEDS: Vitamin THERAPEUTIC TAB PO SCH (11:24)
[2023-04-23] MEDS: Nicotine GUM 2MG FRUIT FLAVOR PO PRN ×2 (13:45→22:35)
[2023-04-24] MEDS: Vitamin THERAPEUTIC TAB PO SCH (10:15)
[2023-04-24] MEDS: Nicotine GUM 2MG FRUIT FLAVOR PO PRN (20:00)
[2023-04-25] MEDS: Vitamin THERAPEUTIC TAB PO SCH (08:56)
[2023-04-25] MEDS: Nicotine GUM 2MG FRUIT FLAVOR PO PRN (19:54)
[2023-04-26] MEDS: Vitamin THERAPEUTIC TAB PO SCH (10:33)
[2023-04-26] MEDS: Nicotine GUM 2MG FRUIT FLAVOR PO PRN (21:14)
[2023-04-27] MEDS: Vitamin THERAPEUTIC TAB PO SCH (09:45)
[2023-04-27] MEDS: Nicotine GUM 2MG FRUIT FLAVOR PO PRN (20:40)
[2023-04-28] MEDS: Vitamin THERAPEUTIC TAB PO SCH (09:51)
[2023-04-28] MEDS: Nicotine GUM 2MG FRUIT FLAVOR PO PRN (20:31)
[2023-04-29 09:29] VITALS: BP 120/68
[2023-04-29] MEDS: Vitamin THERAPEUTIC TAB PO SCH (10:24)
== END 2023-04-29 13:30 | disposition home or self-care (01) | DRG 753 ==
LOC: ED 18:22 → BSU 04-19 11:52 → ED 04-19 11:52 → EDHOLD 04-19 12:18 → BSU 04-19 12:33
PROVIDERS: ADMIT Psychiatry & Neurology Psychiatry; ATTEND Psychiatry & Neurology Psychiatry